=== PATIENT | female | born 1930 | race Caucasian/White ===

== ENCOUNTER 2019-01-21 10:33 | Inpatient (IN) | payer MEDICARE ==
[~2019-01-21] VITALS: Ht 165.1 cm; Wt 58.5 kg
[2019-01-21 11:36] LABS: BASOPHILS # (AUTO) 0.1 X10'3 (0-0.2); EOSINOPHILS # (AUTO) 0.1 X10'3 (0-0.9); MEAN PLATELET VOLUME 8.2 FL (7.4-10.4); MONOCYTES # (AUTO) 0.4 X10'3 (0-0.9); NEUTROPHILS # (AUTO) 2.5 X10'3 (1.8-7.7)
[2019-01-21 11:38] LABS: BASOPHILS % (AUTO) 1.8 % (0-1); HEMATOCRIT 40.6 % (35.0-45.0); HEMOGLOBIN 13.9 g/dl (12.0-16.0); LYMPHOCYTES % (AUTO) 38.9 % (21-51); MEAN CORPUSCULAR HGB CONC 34.2 g/dL (33.0-36.5); MEAN CORPUSCULAR VOLUME 90.6 FL (78-98); MONOCYTES % (AUTO) 8.3 % (2-12); PLATELET COUNT 273 X10'3 (140-440); RED BLOOD COUNT 4.48 X10'6 (4.20-5.60); RED CELL DISTRIBUTION WIDTH 14.7 % (11.5-14.5); WHITE BLOOD COUNT 5.2 X10'3 (4.5-11.0)
[2019-01-21 11:49] LABS: ALANINE AMINOTRANSFERASE 9 U/L (12-78); ALBUMIN 3.8 G/DL (3.4-5.0); ALKALINE PHOSPHATASE 98 IU/L (46-116); ANION GAP 11 (8-16); ASPARTATE AMINO TRANSFERASE 16 U/L (10-37); BILIRUBIN,TOTAL 1.1 MG/DL (0.1-1.0); BLOOD UREA NITROGEN 29 MG/DL (7-18); BUN/CREATININE RATIO 19.7 (6.6-38.0); CALCIUM 9.5 MG/DL (8.5-10.1); CHLORIDE 107 MMOL/L (99-107); CREATININE 1.47 MG/DL (0.40-0.90); GLUCOSE 104 MG/DL (70-104); POTASSIUM 4.3 MMOL/L (3.5-5.1); SODIUM 139 MMOL/L (135-145); TOTAL CARBON DIOXIDE 20.6 MMOL/L (24-32); TOTAL PROTEIN 7.5 G/DL (6.4-8.2); eGFR 33 ML/MIN
[2019-01-21 11:50] LABS: PARTIAL THROMBOPLASTIN TIME 23 SECONDS (22-32)
[2019-01-21] MEDS ORDERED: aspirin 81mg tab.chew PO ONE (11:55)
[2019-01-21] MEDS ORDERED: nitroGLYCERIN 0.4mg/hour patch TD ONE (11:55)
[2019-01-21] MEDS ORDERED: nitroGLYCERIN 0.4mg SUBLingual tab SL PRN (11:55)
[2019-01-21] MEDS ORDERED: morphine 4 MG/ML inj SYRINge IV ONE (12:40)
[2019-01-21] MEDS ORDERED: ondansetron/PF 4mg/2ml inj IV ONE (12:40)
[2019-01-21] MEDS ORDERED: magnesium 4gm in 100ml NS 100 ML IV PRN (13:30)
[2019-01-21] MEDS ORDERED: magnesium 2GM in 50ml NS 50 ML IV PRN (13:30)
[2019-01-21] MEDS ORDERED: potassium Cl 20 mEq SR tablet PO PRN ×2 (13:30)
[2019-01-21] MEDS ORDERED: magnesium Cl slow-release 64mg tablet PO PRN (13:30)
[2019-01-21] MEDS ORDERED: magnesium hydroxide 30ml (MOM) UD suspension PO PRN (13:30)
[2019-01-21] MEDS ORDERED: ondansetron/PF 4mg/2ml inj IV PRN (13:30)
[2019-01-21] MEDS ORDERED: acetaminophen 325mg tablet PO PRN (13:30)
[2019-01-21] MEDS ORDERED: potassium Cl 40MEQ/NS 500ml 500 ML IV PRN ×2 (13:30)
[2019-01-21] MEDS ORDERED: mag hydrox/Alum hydrox/simeth 30ml oral suspension PO PRN (13:30)
[2019-01-21] MEDS: aspirin 81mg tab.chew PO SCH (13:40)
[2019-01-21 15:00] VITALS: BP 116/56
[2019-01-21 15:30] VITALS: BP 124/48
[2019-01-21] MEDS ORDERED: glucagon, human recombinant 1mg kit SUBCUT PRN (16:30)
[2019-01-21] MEDS ORDERED: MESSAGE TO PHARMACY PO ONE (16:30)
[2019-01-21] MEDS ORDERED: insulin Lispro (HumaLOG) vial - multi-dose SQ SCH ×2 (16:30→21:40)
[2019-01-21] MEDS ORDERED: dextrose 50%-water 50ml dispensing syringe IV PRN ×2 (16:30)
[2019-01-21] MEDS ORDERED: dextrose ORAL solution 15 GM/59 ML bottle PO PRN ×2 (16:30)
[2019-01-21] MEDS: isosorbide mononitrate 30mg tab.SR.24H PO SCH (16:33)
[2019-01-21] MEDS ORDERED: LEVO88TA2 PO (16:54)
[2019-01-21] MEDS ORDERED: FURO40TA4 PO (16:54)
[2019-01-21] MEDS ORDERED: SPIR25TA5 PO (16:54)
[2019-01-21] MEDS ORDERED: LISI2.5T2 PO (16:54)
[2019-01-21] MEDS ORDERED: CARV-49 PO (16:54)
[2019-01-21] MEDS ORDERED: ISOS30TA6 PO (16:54)
[2019-01-21] MEDS ORDERED: ASPI-1130 (16:54)
[2019-01-21] MEDS ORDERED: ESCI10TA PO (16:54)
--- NOTE | 2019-01-21 17:10 | NUR ---
Pts blood sugar 64. Pt Asympomatic. 1 dose of PO glucoshot given.
--- NOTE | 2019-01-21 17:40 | NUR ---
Pts bloodsugar rechecked. blood sugar 86.
[2019-01-21 18:00] VITALS: BP 86/29
--- NOTE | 2019-01-21 18:05 | NUR ---
Patient in room PCU 3015. I have received report from Dylan and had the opportunity to ask questions and assume patient care.
--- NOTE | 2019-01-21 18:15 | NUR ---
Problems reprioritized. Patient report given, questions answered & plan of care reviewed with Al RN.
[2019-01-21] MEDS ORDERED: ASPI-1130 PO (19:32)
[2019-01-21] MEDS ORDERED: ASPI-612 (19:35)
[2019-01-21] MEDS: carVEDilol 3.125mg tablet PO SCH (20:00)
[2019-01-21] MEDS: heparin, porcine 5000 units/ml vial SQ SCH (20:01)
[2019-01-21] MEDS ORDERED: insulin glargine (Lantus) pen - multi-dose SQ SCH (21:00)
[2019-01-21 22:00] VITALS: BP 121/45
[2019-01-22 02:00] VITALS: BP 99/40
[2019-01-22 06:00] VITALS: BP 117/42
--- NOTE | 2019-01-22 06:05 | NUR ---
Problems reprioritized. Patient report given, questions answered & plan of care reviewed with [place].
[2019-01-22 06:06] LABS: BASOPHILS # (AUTO) 0.1 X10'3 (0-0.2); BASOPHILS % (AUTO) 1.7 % (0-1); EOSINOPHILS # (AUTO) 0.1 X10'3 (0-0.9); EOSINOPHILS % (AUTO) 2.8 % (0-6); HEMATOCRIT 35.7 % (35.0-45.0); HEMOGLOBIN 12.5 g/dl (12.0-16.0); LYMPHOCYTES # (AUTO) 1.8 X10'3 (1.1-4.8); MEAN CORPUSCULAR HEMOGLOBIN 31.3 PG (27.0-31.0); MEAN CORPUSCULAR HGB CONC 34.9 g/dL (33.0-36.5); MEAN CORPUSCULAR VOLUME 89.6 FL (78-98); MEAN PLATELET VOLUME 8.2 FL (7.4-10.4); MONOCYTES # (AUTO) 0.4 X10'3 (0-0.9); MONOCYTES % (AUTO) 10.5 % (2-12); NEUTROPHILS # (AUTO) 1.3 X10'3 (1.8-7.7); PLATELET COUNT 217 X10'3 (140-440); RED BLOOD COUNT 3.99 X10'6 (4.20-5.60); RED CELL DISTRIBUTION WIDTH 14.7 % (11.5-14.5); WHITE BLOOD COUNT 3.7 X10'3 (4.5-11.0)
[2019-01-22 06:23] LABS: ALANINE AMINOTRANSFERASE 14 U/L (12-78); ALBUMIN 3.2 G/DL (3.4-5.0); ALKALINE PHOSPHATASE 82 IU/L (46-116); ANION GAP 10 (8-16); ASPARTATE AMINO TRANSFERASE 15 U/L (10-37); BILIRUBIN,TOTAL 1.1 MG/DL (0.1-1.0); BLOOD UREA NITROGEN 29 MG/DL (7-18); BUN/CREATININE RATIO 17.8 (6.6-38.0); CALCIUM 8.7 MG/DL (8.5-10.1); CHLORIDE 106 MMOL/L (99-107); CHOL/HDL RATIO 5.4 (0.00-4.99); CHOLESTEROL 221 MG/DL (0-200); CREATININE 1.63 MG/DL (0.40-0.90); GLUCOSE 127 MG/DL (70-104); HDL CHOLESTEROL 41 MG/DL (35-60); LDL CHOLESTEROL 155 MG/DL (50-100); MAGNESIUM 2.1 MG/DL (1.5-2.4); POTASSIUM 4.2 MMOL/L (3.5-5.1); SODIUM 139 MMOL/L (135-145); TOTAL CARBON DIOXIDE 23.1 MMOL/L (24-32); TOTAL PROTEIN 6.5 G/DL (6.4-8.2); TRIGLYCERIDES 159 MG/DL (20-135); eGFR 30 ML/MIN
[2019-01-22] MEDS ORDERED: K and/or MAG REPLACEMENT MC SCH (08:00)
[2019-01-22] MEDS: carVEDilol 3.125mg tablet PO SCH (08:54)
[2019-01-22] MEDS: isosorbide mononitrate 30mg tab.SR.24H PO SCH (08:54)
[2019-01-22] MEDS: aspirin 81mg tab.chew PO SCH (08:54)
[2019-01-22] MEDS: heparin, porcine 5000 units/ml vial SQ SCH (08:56)
[2019-01-22 11:00] VITALS: BP 114/51
--- NOTE | 2019-01-22 11:13 | NUR ---
DM Consult: A1C 8.0. No hx T2DM but also first admit. Pt admit w/ chest pain hx HTN, CAD, hypothyroidism and mild dementia. Pt hx vascular occlusion but declined CABG and wants only medical management per MD note. Pt AOx2 and possibly plans for assisted living vs comfort measures pending. At this time pt not appropriate for DM ed. Will continue to monitor. Addendum: 01/22/19 at [address] Amended: Links added.
[2019-01-22] MEDS ORDERED: ISOS30TA6 PO (12:40)
== END 2019-01-22 13:20 | disposition home or self-care (01) | DRG 311 ==
LOC: ER 10:33 → PCU 3S 14:59
PROVIDERS: ADMIT Family Medicine; ATTEND Internal Medicine
DX: I24.9 Acute ischemic heart disease, unspecified (principal); I25.119 Atherosclerotic heart disease of native coronary artery with unspecified angina pectoris; E03.9 Hypothyroidism, unspecified; E11.9 Type 2 diabetes mellitus without complications; F03.90 Unspecified dementia, unspecified severity, without behavioral disturbance, psychotic disturbance, mood disturbance, and anxiety; Z66 Do not resuscitate; F32.9 Major depressive disorder, single episode, unspecified; I10 Essential (primary) hypertension; I25.2 Old myocardial infarction; Z90.710 Acquired absence of both cervix and uterus; Z88.5 Allergy status to narcotic agent; Z91.041 Radiographic dye allergy status; Z98.61 Coronary angioplasty status
CPT/HCPCS: 36415; 71045; 80053; 80061; 82948; 83036; 83735; 83880; 84484; 85025; 85610; 85730; 87070; 93005; 93306; 96374; 96375; 99285; G0378; J1644; J1815; J2270; J2405